=== PATIENT | female | born 1985 | race Caucasian/White ===

== ENCOUNTER 2019-12-02 12:40 | Day surgery (SDC) | payer MEDICAID ==
[~2019-12-02] VITALS: Ht 165.1 cm; Wt 83.0 kg
[~2019-12-02 12:40] MED LIST: CEFAZOLIN 1,000 MG ONE; DEXAMETHASONE 4 MG/ML, 1ML ONE; GLYCOPYRROLATE 0.2MG/1ML, 5ML ONE; KETOROLAC 30 MG/1 ML ONE; NEOSTIGMINE 1 MG/ML, 10ML ONE; ORPH100T PO; OXYC-302 PO; PROM25TA10 PO; PROPOFOL 10 MG/ML, 20ML ONE; TRAM50TA2 PO
[2019-12-02 13:15] VITALS: BP 121/85
[2019-12-02] MEDS ORDERED: CHLORHEXIDINE 15 ML UDC MM STA (13:19)
[2019-12-02] MEDS ORDERED: CHLORHEXIDINE 15 ML UDC ONE (13:24)
[2019-12-02] MEDS ORDERED: LACTATED RINGERS 1,000 ML IV SCH (13:30)
[2019-12-02 13:49] VITALS: BP 121/85
[2019-12-02 14:05] LABS: HCG UR SG 1.036 (1.003-1.030)
[2019-12-02] MEDS ORDERED: CYCL-259 PO (14:31)
[2019-12-02] MEDS ORDERED: GABA600T7 PO (14:31)
[2019-12-02] MEDS ORDERED: HYDR-2995 PO (14:31)
[2019-12-02] MEDS ORDERED: BUPIVACAINE/PF 0.25% ONE ×2 (16:00→16:19)
[2019-12-02] MEDS ORDERED: EPINEPHRINE 1 MG/ML, 1ML ONE (16:00)
[2019-12-02] MEDS ORDERED: NEOMY/POLYMYXIN B GU IRR. 1 ML ONE (16:01)
[2019-12-02] MEDS ORDERED: FENTANYL PF 100 MCG/2ML ONE ×3 (16:10→19:11)
[2019-12-02] MEDS ORDERED: MIDAZOLAM 1 MG/ML, 2ML ONE (16:11)
[2019-12-02] MEDS ORDERED: BUPIVACAINE/PF-EPI 0.25% 1:200K INFIL ONE (17:30)
[2019-12-02] MEDS ORDERED: NEOMY/POLYMYXIN B GU IRR. 1 ML IRRIG ONE (17:30)
[2019-12-02] MEDS ORDERED: LABETALOL 5MG/ML, 20ML IV PRN (18:00)
[2019-12-02] MEDS ORDERED: hydrALAzine 20 MG/ML, 1ML IV PRN (18:00)
[2019-12-02] MEDS ORDERED: MEPERIDINE/PF 25MG/0.5ML IVPush PRN (18:00)
[2019-12-02] MEDS ORDERED: DIPHENHYDRAMINE 50 MG/ML, 1ML IVPush PRN (18:00)
[2019-12-02] MEDS ORDERED: HALOPERIDOL 5 MG/ML IV PRN (18:00)
[2019-12-02] MEDS ORDERED: PROMETHAZINE 25 MG/ML, 1ML IVPush PRN (18:00)
[2019-12-02] MEDS ORDERED: OXYcodone 5 MG/5 ML ORAL.SOL UDC PO PRN (18:00)
[2019-12-02] MEDS ORDERED: ACETAMINOPHEN 325 MG TABLET PO PRN (18:00)
[2019-12-02] MEDS ORDERED: PROMETHAZINE 25 MG/ML, 1ML ONE (19:11)
[2019-12-02] MEDS ORDERED: HYDROmorphone 1 MG/ML, 1ML INJ ONE ×2 (19:11→19:42)
[2019-12-02] MEDS: FENTANYL PF 100 MCG/2ML IV PRN ×2 (19:12→19:19)
[2019-12-02] MEDS ORDERED: DIAZEPAM 5 MG/ML, 2ML ONE (19:21)
[2019-12-02] MEDS: DIAZEPAM 5 MG/ML, 2ML IVPush PRN ×2 (19:25→19:41)
[2019-12-02] MEDS: HYDROmorphone 1 MG/ML, 1ML INJ IVPush PRN ×4 (19:30→19:54)
[2019-12-02] MEDS ORDERED: ONDANSETRON 2MG/ML, 2ML ONE (20:54)
[2019-12-02] MEDS ORDERED: HYDROcodone/APAP 5/325 TABLET PO PRN (21:00)
[2019-12-02] MEDS ORDERED: HYDROmorphone 1 MG/ML, 1ML INJ IV PRN (21:00)
[2019-12-02] MEDS ORDERED: KETOROLAC 30 MG/1 ML IV PRN (21:00)
[2019-12-02] MEDS ORDERED: IBUPROFEN 600 MG TABLET PO PRN (21:00)
[2019-12-02] MEDS ORDERED: OXYcodone/APAP 5/325MG TABLET PO PRN (21:00)
[2019-12-02] MEDS ORDERED: ONDANSETRON 2MG/ML, 2ML IV PRN (21:00)
== END 2019-12-02 22:05 | disposition home or self-care (01) ==
LOC: OUT 12:40 → 3WST 20:45 → OUT 22:05
PROVIDERS: ATTEND Obstetrics & Gynecology Female Pelvic Medicine and Reconstructive Surgery
DX: N92.1 Excessive and frequent menstruation with irregular cycle (principal); Z20.828 Contact with and (suspected) exposure to other viral communicable diseases; N94.6 Dysmenorrhea, unspecified; N94.10 Unspecified dyspareunia; N81.89 Other female genital prolapse; N39.3 Stress incontinence (female) (male); N83.8 Other noninflammatory disorders of ovary, fallopian tube and broad ligament; N81.11 Cystocele, midline; N81.5 Vaginal enterocele; N81.6 Rectocele; M79.7 Fibromyalgia; G43.909 Migraine, unspecified, not intractable, without status migrainosus; Z79.899 Other long term (current) drug therapy; Z87.442 Personal history of urinary calculi; Z88.2 Allergy status to sulfonamides; Z88.5 Allergy status to narcotic agent; Z88.8 Allergy status to other drugs, medicaments and biological substances; Z98.51 Tubal ligation status
CPT/HCPCS: 57265; 57282; 57288; 58552; 81025; 87635; 88307; C1771; J0171; J0690; J1100; J1170; J1885; J2250; J2550; J2704; J2710; J3010; J3360; G0378

== ENCOUNTER → 2020-03-17 | Outpatient (CLI) | payer MEDICAID ==
[~2020-03-17] MED LIST changes: -CEFAZOLIN 1,000 MG ONE; +CYCL10TA2 PO; -DEXAMETHASONE 4 MG/ML, 1ML ONE; +GABA600T7 PO; -GLYCOPYRROLATE 0.2MG/1ML, 5ML ONE; +HYDR-2995 PO; -KETOROLAC 30 MG/1 ML ONE; -NEOSTIGMINE 1 MG/ML, 10ML ONE; -OXYC-302 PO; +OXYC1TAB14 PO; -PROPOFOL 10 MG/ML, 20ML ONE
== END | disposition home or self-care (01) ==
LOC: CFH 13:58
PROVIDERS: ATTEND Nurse Practitioner Family
DX: H93.8X9 Other specified disorders of ear, unspecified ear (principal); H92.02 Otalgia, left ear
CPT/HCPCS: 70480